=== PATIENT | female | born 1990 | race American Indian/Alaskan Native ===

== ENCOUNTER 2017-01-16 13:35 | Emergency (ER) | payer MEDICAID ==
--- NOTE | 2017-01-16 14:46 | OBHP ---
Datetime: 01/16/2017 14:41 IP Adm Impression: Term, intrauterine ; No Active Labor IP Admit Plan: Discharge home Admit Comment, IP Provider: False Labor. Reassuring Status. Discharge Home. Labor teaching don e. Pelvic Type - PN: Adequate Extremities - PN: Normal Abdomen - PN: Normal Back - PN: Normal Breast - PN: Not Done Lungs - PN: Normal Heart - PN: Normal Thyroid - PN: Not Done Neurologic - PN: Not Done HEENT - PN: Not Done General - PN: Normal Weight - Estimated: 3200 Presentation-Admit: Vertex FHR - Baseline A Provider: 140 Membranes, Provider: Intact Contraction Comments Provider: Q 6-8min. Gestation - Est Wks by US: 39.0 EGA AdmitDate IP: 38.6 Vital Signs Provider: Reviewed; Within Normal Limits IP Chief Complaint: Uterine contractions NICHD Variability Prov Fetus A: Moderate 6-25bpm NICHD Accel Fetus A IP Provider: 15X15 FHR Category Provider Fetus A: Category I NICHD Decel Fetus A IP Provider: None Dilatation, Provider: 1 Effacement, Provider: 30 Station, Provider: -2 Genitourinary Exam: Normal DTRs - PN: Normal
--- NOTE | 2017-01-16 14:50 | OBDCSUM ---
Datetime: 01/16/2017 14:40 Discharged to, Provider: Home Follow up at, Provider: [facility] Disch Instr Activity: Normal activity Disch Instr Diet: Regular Discharge Instructions, Provider: Specific instructions as noted Discharge Diagnosis, Provider: Term Delivered; False Labor - Undelivered Discharge Time: 01/16/2017 14:40 Follow up in weeks, Provider: 01/22/17
== END 2017-01-16 14:40 | disposition home or self-care (01) ==
LOC: C.EROB 13:35
DX: O47.1 False labor at or after 37 completed weeks of gestation (principal); Z3A.39 39 weeks gestation of pregnancy

== ENCOUNTER 2017-01-27 17:32 | Inpatient (IN) | payer MEDICAID ==
[2017-01-27] MEDS ORDERED: Penicillin G 5 Million Unit Vial IVPB ONE ×2 (18:17→20:06)
[2017-01-27 18:21] VITALS: BMI 37.8
[2017-01-27] MEDS ORDERED: Oxytocin 30 UNIT 30 UNITS/500 ML BAG IV PRN (18:21)
[2017-01-27] MEDS ORDERED: Lactated Ringer's 1,000 ML IV SCH (18:30)
--- NOTE | 2017-01-27 18:38 | OBHP ---
Datetime: 01/27/2017 18:22 IP Adm Impression: Postterm, intrauterine ; Intact Membranes IP Adm Impression Other: Early labor IP Admit Plan: Admit to unit; Initiate labor protocol Admit Comment, IP Provider: 26 yo , LMP 04/19/16, RONALD 01/24/17, EGA 40w 3d confirmed by sono at 19 weeks c/o ctx since after visit 01/26/17; but stronger since earlier this morning . Pain scale now 8/10, approximately every 5 min. issues: [facility]; last visit . 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 4) Anemia - not on iron. 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 09/2015, HSV-2 first diagnosed PMH: denies PSH: denies NKDA Meds: PNV - QD; valtrex - BID, since early Soc Hx: denies tobacco, illicit drug or EtOH use. 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 FOB [place] in the [place]; Lives with her son Fam Hx: Mother alive 53 - DM. Father alive 53 - HTN. No known fam h/o cancer. P.E.: as above. Obese in moderate discomfort with contractions. Awake, alert, oriented to time, pe rson and place. Pleasant and cooperative Assessment: 26 yo P1, 40w 3d, early labor. GBS (+) for treatment in labor. HSV2 on suppressive the rapy; no lesions noted. Category 1 tracing. D/W patient: 1) pitocin for augmentation; 2) penicillin f or GBS; 3) epidural for pain relief during labor (had epidural with previous labor). All questions an swered. Patient is clinically stable. Plan: 1) Admit 2) NPO 3) IVFs 4) Admission labs 5) Continuous EFM 6) pitocin 7) Penicillin G 8) Epidural, upon request 9) Anticipate vaginal delivery Pelvic Type - PN: Adequate Extremities - PN: Normal Abdomen - PN: Normal Back - PN: Normal Breast - PN: Not Done Lungs - PN: Normal Heart - PN: Normal Thyroid - PN: Not Done Neurologic - PN: Normal HEENT - PN: Normal General - PN: Normal Weight - Estimated: 3505 Presentation-Admit: Vertex FHR - Baseline A Provider: 140 Membranes, Provider: Intact Contraction Comments Provider: irregular Comments, ACOG Physical Exam: Skin: warm, dry, intact Abdomen: Gravid. Firm to moderate with palpable contractions. Fundal height 39 cm Perineum: no herpetic lesions noted All other systems reviewed and are negative Gestation - Est Wks by US: 40w 3d IP Hx Assessment: The History has been Reviewed and is Current EGA AdmitDate IP: 40.3 Vital Signs Provider: Reviewed; Within Normal Limits IP Indication for Induction: Not Applicable IP Chief Complaint: Uterine contractions NICHD Variability Prov Fetus A: Moderate 6-25bpm NICHD Accel Fetus A IP Provider: 15X15 FHR Category Provider Fetus A: Category I NICHD Decel Fetus A IP Provider: None Dilatation, Provider: 3 Effacement, Provider: 50 Station, Provider: -3 Genitourinary Exam: Normal DTRs - PN: Not Done Datetime: 01/16/2017 14:41 IP Chief Complaint Other: P! at 38 weeks 6days Gestation complains of painful uterine contractions. 1 . PMH: None PSH: None
[2017-01-27 19:30] LABS: BASO # 0.1 K/uL (0.0-0.2); BASO % 0.6 % (0.0-2.0); EOS # 0.1 K/uL (0.0-0.7); EOS % 0.5 % (0.0-4.0); HEMATOCRIT 35.5 % (34.0-47.0); LYMPH # 2.8 K/uL (1.0-4.3); LYMPH % 20.8 % (20.0-40.0); MEAN CORPUSCULAR HEMOGLOBIN 27.5 pg (27.0-31.0); MEAN PLATELET VOLUME 11.9 fL (7.2-11.7); MONO # 1.2 K/uL (0.0-0.8); MONO % 8.9 % (0.0-10.0); RED CELL DISTRIBUTION WIDTH 14.4 % (11.5-14.5); WHITE BLOOD COUNT 13.6 K/uL (4.8-10.8)
[2017-01-27 19:43] LABS: RBC URINE 2 /hpf (0-3); URINE BACTERIA OCC (<OCC); URINE BILIRUBIN NEGATIVE (NEGATIVE); URINE BLOOD NEGATIVE (NEGATIVE); URINE COLOR Yellow (YELLOW); URINE GLUCOSE (UA) NORMAL (Normal); URINE KETONE NEGATIVE (NEGATIVE); URINE LEUKOCYTE ESTERASE 1+ Leu/uL (Negative); URINE PROTEIN NEGATIVE (NEGATIVE); URINE UROBILINOGEN NORMAL mg/dL (0.2-1.0); WBC URINE 9 /hpf (0-5)
[2017-01-27 20:12] LABS: CHLORIDE 102 mmol/L (98-107); POTASSIUM 4.6 mmol/L (3.6-5.2); SODIUM 133 mmol/L (132-148)
[2017-01-27 20:14] LABS: AST/SGOT 20 U/L (14-36); BILIRUBIN,TOTAL 0.8 mg/dL (0.2-1.3); CARBON DIOXIDE 22 mmol/L (22-30); GFR AFRICAN-AMERICAN > 60; TOTAL PROTEIN 6.8 g/dL (6.3-8.3)
[2017-01-27 20:15] LABS: ALKALINE PHOSPHATASE 153 U/L (38-126); ALT/SGPT 10 U/L (9-52); BLOOD UREA NITROGEN 9 mg/dL (7-17); CALCIUM 9.1 mg/dl (8.6-10.4); GLUCOSE,RANDOM 76 mg/dL (65-105)
[2017-01-27] MEDS ORDERED: Oxytocin 30 UNIT 30 UNITS/500 ML BAG IV ONE (20:16)
[2017-01-27] MEDS ORDERED: Sodium Citrate/Citric Acid 15 ml Sol ONE (22:51)
[2017-01-27] MEDS ORDERED: cefOXitin IV 2 gm in Dextrose 2 GM/50 ML BAG IVPB ONE (22:51)
[2017-01-27] MEDS ORDERED: Sodium Citrate/Citric Acid 15 ml Sol PO ONE (22:54)
[2017-01-27] MEDS ORDERED: Morphine 1 mg/ml preservative-free Inj(Duramorph) ONE (22:54)
--- NOTE | 2017-01-27 22:55 | OBPN ---
Datetime: 01/27/2017 22:44 Contraction Comments Provider: irregular IP Progress Note Comment: FHR traicng noted for variable/late deceleration: most significant deceler ation gavino 120 bpm from baseline 150 bpm x 1 min x 2 episodes. Patient has been repositioned to right Finley position, IVF bolus running, oxygen by mask. Pitoci n at 4 mU. Patient counseled as follows: stop pitocin and continue in anticipatoiun of spontaneous progress v ersus delivery. R/B/C of each option were discussed. Patient's questions answered; lizzeth osborne s decided to proceed with abdominal delivery. Consents signed, dated, witnessed and placed in chart. FHR now Category 1; pitocin has been dscontinued Plan: 1) Notify anesthesia 2) Notify peds 30 Abdominal prep and shave 4) Blood 5) Mefoxin 6) pre-op meds 7) call center manager to O.R. Dilatation, Provider: 3 Effacement, Provider: 60 Station, Provider: -3 Datetime: 01/27/2017 18:22 Membranes, Provider: Intact FHR - Baseline A Provider: 140 Gestation - Est Wks by US: 40w 3d Weight - Estimated: 3505 Presentation-Admit: Vertex Vital Signs Provider: Reviewed; Within Normal Limits NICHD Accel Fetus A IP Provider: 15X15 FHR Category Provider Fetus A: Category I NICHD Variability Prov Fetus A: Moderate 6-25bpm NICHD Decel Fetus A IP Provider: None
[2017-01-27] MEDS ORDERED: DiphenhydrAMINE 50 mg/ml Inj IVP PRN (22:56)
[2017-01-27] MEDS ORDERED: cefOXitin IV 2 gm in Dextrose 2 GM/50 ML BAG IVPB SCH (23:00)
[2017-01-27] MEDS ORDERED: cefOXitin IV 2 gm in Saline 2 GM in Sodium Chloride 0.9% 50 ML IV SCH (23:00)
--- NOTE | 2017-01-27 23:21 | OBPN ---
Datetime: 01/27/2017 22:44 IP Progress Note Comment: FHR traicng noted for variable/late deceleration: most significant deceler ation gavino 120 bpm from baseline 150 bpm x 1 min x 2 episodes. Patient has been repositioned to right Finley position, IVF bolus running, oxygen by mask. Pitoci n at 4 mU. Patient counseled as follows: stop pitocin and continue in anticipatoiun of spontaneous progress v ersus delivery. R/B/C of each option were discussed. Patient's questions answered; patien osborne s decided to proceed with abdominal delivery. Consents signed, dated, witnessed and placed in chart. FHR now Category 1; pitocin has been dscontinued Assessment: 27 yo , 40w 6d, repetitive late decelerations, remote from delivery, inability to tolerate pitocin. Plan: 1) Notify anesthesia 2) Notify peds 30 Abdominal prep and shave 4) Blood 5) Mefoxin 6) pre-op meds 7) oncology physician assistant to O.R.
[2017-01-27] MEDS ORDERED: Phenylephrine 10 mg/ml Inj ONE (23:32)
[2017-01-27] MEDS ORDERED: ePHEDrine 50 mg/ml Inj ONE (23:32)
--- NOTE | 2017-01-28 00:52 | OBDS ---
DELIVERY PERSONNEL Delivery Doctor: Nicole Tom MD Setup Technician: Alix Bennett RN Anesthesiologist: Nicole Hanson MD MATERNAL INFORMATION Delivery Anesthesia: Spinal Medications in Delivery: pitocin 20 units Placenta Cultured: No Maternal Complications: None Provider Comments: Uncomplicated primary section with atraumatic delivery of live male infa nt, VIVIENNE position, Apgars 9/9, weight 7lb 9oz. LABOR SUMMARY EDC: 01/24/2017 00:00 No. Babies in Womb: 1 Attempted: No Labor Anesthesia: None LABOR INFORMATION Reason for Induction: Not Applicable Onset of Labor: 01/27/2017 16:00 Oxytocin: Augmentation Group B Beta Strep: Positive (Annotations: 12/29/2016) Antibiotics # of Doses: 1 Antibiotics Time of Last Dose: 1999 Steroids Given: None Reason Steroids Not Administered: Not Applicable MEMBRANES Membranes Rupture Method: Artificial Rupture of Membranes: 01/27/2017 23:44 Length of Rupture (hrs): 0.00 Amniotic Fluid Color: Clear Amniotic Fluid Amount: Moderate Amniotic Fluid Odor: Normal STAGES OF LABOR Stage 3 hrs: 0 Stage 3 min: 1 Total Time in Labor hrs: 7 Total Time in Labor min: 45 CSECTION DELIVERY Primary Indication: Nonreassuring Status CSection Urgency: Elective CSection Incidence: Primary Labor: Labor Elective: Nonelective CSection Incision: Lower Uterine Transverse Uterine Closure: Double-layer closure BABY A INFORMATION Delivery Date/Time: 01/27/2017 23:44 Method of Delivery: Born in Route : No : N/A Forceps: N/A Vacuum Extraction: N/A Shoulder Dystocia : No SHOULDER DYSTOCIA BABY A Infant Delivery Date/Time: 01/27/2017 23:44 PRESENTATION/POSITION BABY A Presentation: Cephalic Cephalic Presentation: Vertex Vertex Position: Left Occipital Anterior Breech Presentation: N/A PLACENTA INFORMATION BABY A Placenta Delivery Time : 01/27/2017 23:45 Placenta Method of Delivery: Manual Removal Placenta Status: Delivered SCORES BABY A Heart Rate 1 min: >100 bpm Resp Effort 1 min: Good Cry Reflex Irritability 1 min: Cough or Sneeze or Pulls Away Muscle Tone 1 min: Active Motion Color 1 min: Body Mercer, Extremities Blue SCORE 1 MIN: 9 Heart Rate 5 min: >100 bpm Resp Effort 5 min: Good Cry Reflex Irritability 5 min: Cough or Sneeze or Pulls Away Muscle Tone 5 min: Active Motion Color 5 min: Body Mercer, Extremities Blue SCORE 5 MIN: 9 INFANT INFORMATION BABY A Gestational Age at Delivery: 40.3 Gestational Status: Term Outcome : Liveborn Infant Condition : Stable Sex: Male IDENTIFICATION/MEDS BABY A ID Band Number: [id number] ID Band Location: Left Leg; Left Arm Sensor Applied: Yes Sensor Number: [id number] Sensor Location : Cord Clamp WEIGHT/LENGTH BABY A Birthweight (gms): 3420 Weight (lb): 7 Weight (oz): 9 Infant Length Inches: 20.50 Infant Length cms: 52.1 CORD INFORMATION BABY A No. Cord Vessels: 3 Nuchal Cord : N/A Cord Blood Taken: Yes Infant Suction: Mouth; Nose ASSESSMENT BABY A Complications: None Physical Findings at Delivery: Within Normal Limits Infant Respirations: Appears Normal Supervisor Fabrication Department/ALS Called : No Infant Care By: Ceferino EGAN Transferred To: [facility]
--- NOTE | 2017-01-28 02:09 | OP ---
PROCEDURE DATE: 01/27/2017 SURGEON: Annie Tom MD ENGINEERING PROGRAM MANAGER: Alvaro Monteiro MD ANESTHESIOLOGIST: Isaac Hanson MD ANESTHESIA: Spinal. PREOPERATIVE DIAGNOSES: 40 weeks, 3 days gestation, repetitive late decelerations remote from delivery, inability to tolerate Pitocin, GBS positive , HSV 2 positive. POSTOPERATIVE DIAGNOSES: 40 weeks, 3 days gestation, repetitive late decelerations remote from delivery, inability to tolerate Pitocin, GBS positive , HSV 2 positive. Status post primary Caesarean section. OPERATIVE FINDINGS: Live male , right occiput anterior position, Apgars 9 and 9 at one and five minutes, respectively; weight 7 pounds 9 ounces. Normal uterus; normal ovaries and fallopian tubes, bilaterally PROCEDURE: Low transverse Caesarean section. ESTIMATED BLOOD LOSS: 800 mL. URINARY OUTPUT: 500 mL. INTRAVENOUS FLUIDS: 2000 mL. COMPLICATIONS: None. BLOOD PRODUCTS: None. SPECIMENS: None. CONDITION: Stable. PROCEDURE: The patient was taken to the operating room after having obtained informed consent for the anticipated procedure. This included discussion of potential complications including, but not limited to, infection requiring continued antibiotics, hemorrhage requiring blood transfusion, repair of any damage to internal organs, possible Caesarean hysterectomy. The patient received Mefoxin 2 grams in LDR 4 prior to being escorted to the recovery room and a Blood had been placed under sterile conditions. The patient was then transferred to the operating room. She was placed on the operating table in the sitting position and spinal anesthesia was administered without incident. She was immediately repositioned into a supine position. heart rate was auscultated at 135 beats per minute. The abdomen was prepped and she was draped in usual sterile fashion. After assuring an adequate level of anesthesia , a Pfannenstiel incision was made on the skin using the first scalpel. The incision was carried down through the subcutaneous tissue using the Bovie electrocautery. The fascia was identified, it was nicked in the midline and the incision was extended bilaterally also using the Bovie electrocautery. The rectus muscle was dissected off the overlying fascia. The rectus muscle was then in the midline. The parietal peritoneum was identified and entered via blunt dissection. The vesicouterine reflection was identified and the bladder flap was created. A transverse incision was then made on the lower uterine segment using the scalpel. Amniotomy was performed and a moderate amount of clear amniotic fluid was obtained. Atraumatic delivery of infant ensued; findings as above. Once on the operative field, the 's mouth and nose were bulb suctioned. The umbilical cord was doubly clamped and cut, and the was handed off to the pediatricians in attendance. Manual removal of the placenta ensued without incident. It was noted to have 3 vessels present in the cord. The uterus was then exteriorized for closure. This was done in 2 layers using 0 Vicryl. The first layer was in a running interlocking fashion, the second layer was in a vertical imbricating fashion. Additional [id number] stitches were placed on the lower uterine segment using 0 Biosyn to assure hemostasis. Attention was then directed to the posterior aspect of the uterus. The pelvic viscera were examined and noted to be normal with the findings as above. Copious irrigation was performed of the abdominal cavity. Attention was then directed back to the uterine incision. Surgicel was placed on the uterine incision. The bladder flap was reapproximated using 2 -0 chromic in a running fashion. The uterus was returned to the abdominal cavity and the paracolic gutters were cleared of all debris. Adequate hemostasis was assured and the parietal peritoneum was reapproximated in the midline using 3-0 chromic in a running fashion. The muscles were then reapproximated in the midline using 3-0 chromic in a running fashion. The fascia was reapproximated using 1-0 Vicryl in running fashion in 1 single strand. Subcutaneous tissue was reapproximated using plain catgut in a running fashion and skin was reapproximated using 4-0 Monocryl in a subcuticular fashion. Steri-Strips were applied and a pressure dressing was applied. The patient was then repositioned in a frogleg position. A bimanual exploration was performed. Uterus was evacuated of all clot and the uterus contracted at about 1 fingerbreadth below the umbilicus. The patient was then transferred back to [facility] in stable condition. Dr. Monteiro was present for the entire procedure, from beginning to end. His presence was needed for: 1) adequate visualization of the operative field at all times; 2) applying adequate fundal pressure for the safe and atraumatic delivery of the ; 3) assuring hemostasis throughout the entire procedure. Annie Aly Tom MD cc: [id number] TT: 01/28/2017 02:09:12 mn MTDKenny
--- NOTE | 2017-01-28 10:13 | OBPPN ---
Datetime: 01/28/2017 09:59 PP Pain Prov: Within normal limits PP Nausea Prov: Denies PP Flatus Prov: Yes PP BM Prov: No PP Breasts Prov: Normal PP Heart Prov: Normal PP Lungs Prov: Normal PP Abdomen/Uterus Prov: Normal PP Lochia Prov: Normal PP Vulva/Perineum Prov: Normal PP CVA Tenderness Prov: Normal PP Extremities Prov: Normal PP C/S Incision Prov: Normal PP Progress Prov: Normal PP Comments Phys Exam Prov: Abdomen: soft. [id number] incisional tenderness. Incision dressing dry . Good bowel sounds. PP Impression Prov: Normal progression PP Plan Prov: Continue present management PP Progress Note Prov: Stable post-op. Ambulate. Analgesia. Diet as tolerated. IP PP Procedures: None Vital Signs Provider PP: Reviewed; Within Normal Limits
[2017-01-28] MEDS ORDERED: Simethicone 80 mg Chewtab ONE ×2 (15:04→17:38)
[2017-01-28] MEDS ORDERED: Oxycodone/Acetaminophen 5/325 mg Tab PO PRN ×2 (19:09)
[2017-01-28 22:16] LABS: HEMATOCRIT 32.8 % (34.0-47.0); MEAN CELL VOLUME 88.1 fL (81.0-99.0); MEAN CORPUSCULAR HEMOGLOBIN 27.6 pg (27.0-31.0); MEAN CORPUSCULAR HGB CONC 31.3 g/dL (33.0-37.0); MEAN PLATELET VOLUME 11.8 fL (7.2-11.7); RED CELL DISTRIBUTION WIDTH 14.5 % (11.5-14.5); WHITE BLOOD COUNT 15.1 K/uL (4.8-10.8)
[2017-01-28] MEDS: Simethicone 80 mg Chewtab PO SCH (22:36)
[2017-01-29] MEDS: Simethicone 80 mg Chewtab PO SCH ×4 (09:23→22:34)
--- NOTE | 2017-01-29 12:42 | OBPPN ---
Datetime: 01/29/2017 12:38 PP Pain Prov: Within normal limits PP Nausea Prov: Denies PP Flatus Prov: Yes PP Breasts Prov: Normal PP Heart Prov: Normal PP Lungs Prov: Normal PP Abdomen/Uterus Prov: Normal PP Lochia Prov: Normal PP Vulva/Perineum Prov: Normal PP CVA Tenderness Prov: Normal PP Extremities Prov: Normal PP C/S Incision Prov: Normal PP Progress Prov: Normal PP Comments Phys Exam Prov: Abd: Soft, NT ,BS- present Ut- firm Incision: Clean and dry PP Impression Prov: Normal progression PP Plan Prov: Continue present management PP Progress Note Prov: S/P Section, Clinically Stable Plan: Continue care. Vital Signs Provider PP: Reviewed
--- NOTE | 2017-01-30 08:33 | OBPPN ---
Datetime: 01/30/2017 08:23 PP Pain Prov: Within normal limits PP Nausea Prov: Denies PP Flatus Prov: No PP BM Prov: No PP Breasts Prov: Normal PP Heart Prov: Normal PP Lungs Prov: Normal PP Abdomen/Uterus Prov: Normal PP Lochia Prov: Normal PP Vulva/Perineum Prov: Not Done PP CVA Tenderness Prov: Normal PP Extremities Prov: Normal PP C/S Incision Prov: Normal PP Progress Prov: Normal PP Comments Phys Exam Prov: Skin: warm, dry, intact Abdomen: Obese. Soft, non distended. (+) BS. Incision with subcuticular closure, steri strips in p lace - clean, dry intact. Mild lochia rubra Extremities: no calf tenderness or edema All other systems reviewed and are negative PP Impression Prov: Normal progression PP Plan Prov: Discharge PP Progress Note Prov: Patient received in room 459, sitting in chair, . Denies nausea, vomiting; not passed flatus ..."I'm burping"; no BM. Ambulating and voiding without difficulty. Repo rts incisional pain, 7/10 - relieved with motrin. P.E.: as above. Obese in NAD. Awake, alert, oriented to time, person and place. Pleasant and coope rative. - POD#1 H/H 10.3/32.8 Assessment: POD#3, 26 y.o. P2, S/P primary C/S for non reassuring herat tracing, remote fro m delivery, inability to tolerate pitocin. Afebrile, vital signs stable. Mild anemia - asymptomatic; hemodynamically stable. Does not desire contraception... "[place]". Clinically stable . Plan: 1) discharge home 2) See full discharge instructions Vital Signs Provider PP: Reviewed; Within Normal Limits
--- NOTE | 2017-01-30 08:35 | OBDCSUM ---
Datetime: 01/30/2017 08:32 Discharged to, Provider: Home Follow up at, Provider: [facility] Disch Instr Activity: May be up to bathroom; May be up for meals; May Shower Disch Instr Diet: Regular Discharge Diagnosis, Provider: Postterm Delivery Follow up in weeks, Provider: [facility] 02/03/17 Disch Referrals: None Contraception discussed, Prov: Yes Disch Activity Restrictions: No sexual activity; Nothing in vagina - [place], tampons, douche Discharge Diagnosis Prov Other: Status post primary Ceasraean section Anemia Contraception counseling Contraception after Delivery: Not Planning to Use
[2017-01-30 08:49] VITALS: BP 124/78; PULSE 90; RESP 18; TEMP 97; O2SAT 98
[2017-01-30] MEDS: Simethicone 80 mg Chewtab PO SCH (09:23)
== END 2017-01-30 12:59 | disposition home or self-care (01) | DRG 370 ==
LOC: C.EROB 17:32 → C.4D 18:05 → C.4M 01-28 03:40
PROVIDERS: ADMIT Obstetrics & Gynecology; ATTEND Obstetrics & Gynecology
PROC: 10D00Z1 Extraction of Products of Conception, Low, Open Approach (ICD-10-PCS; principal; 2017-01-27)
DX: O48.0 Post-term pregnancy (principal); O76 Abnormality in fetal heart rate and rhythm complicating labor and delivery; O99.02 Anemia complicating childbirth; O98.32 Other infections with a predominantly sexual mode of transmission complicating childbirth; O99.824 Streptococcus B carrier state complicating childbirth; A60.00 Herpesviral infection of urogenital system, unspecified; D64.9 Anemia, unspecified; Z3A.40 40 weeks gestation of pregnancy; Z37.0 Single live birth